=== PATIENT | female | born 1975 | race African-American/Black ===

== ENCOUNTER 2017-02-02 07:24 | Emergency (ER) | payer BC, SELFPAY ==
[2017-02-02] MEDS ORDERED: Ibuprofen 800 MG TAB ONE (08:15)
--- NOTE | 2017-02-02 08:52 | RAD ---
EXAM: RIGHT FOOT 3 VIEWS: HISTORY: Fall. Pain. COMPARISON: None. FINDINGS: Lisfranc alignment is maintained. Joint space is preserved. No fracture or malalignment. Mild dors al soft tissue swelling at the level of the mid foot. IMPRESSION: Mild dorsal soft tissue swelling, without evidence of fracture. POS: [facility]
== END 2017-02-02 08:49 | disposition home or self-care (01) ==
LOC: ERS 07:24
DX: S93.601A Unspecified sprain of right foot, initial encounter (principal); W01.0XXA Fall on same level from slipping, tripping and stumbling without subsequent striking against object, initial encounter

== ENCOUNTER 2017-05-26 16:50 | Emergency (ER) | payer BC, SELFPAY ==
[2017-05-26] MEDS ORDERED: Dexamethasone 4 mg/ml Vial ONE (17:41)
[2017-05-26] MEDS ORDERED: Ketorolac Tromethamine 30 MG/ML VIAL ONE (17:41)
== END 2017-05-26 18:16 | disposition home or self-care (01) ==
LOC: ERS 16:50
DX: S29.012A Strain of muscle and tendon of back wall of thorax, initial encounter (principal); X50.9XXA Other and unspecified overexertion or strenuous movements or postures, initial encounter
CPT/HCPCS: 96372; J1100; J1885

== ENCOUNTER 2018-10-12 18:23 | Emergency (ER) | payer BC, SELFPAY ==
[2018-10-12] MEDS ORDERED: Acetaminophen 500 MG TAB ONE (19:01)
--- NOTE | 2018-10-12 19:52 | RAD ---
XR Tib Fib Lt Leg 2 View History: Pain. Injury. Comparison: None. Findings: Tibia and fibula are intact. No acute fracture or malalignment. Impression: No acute osseous abnormality.
--- NOTE | 2018-10-12 19:53 | RAD ---
XR Wrist 3 Lt View STANDARD History: Pain Comparison: None. Findings: Subtle linear lucency distal pole of the scaphoid. Soft tissues are unremarkable. Remainder of the wrist is unremarkable. Impression: Subtle linear lucency distal pole scaphoid seen only on the lateral radiograph. Recommend correlation with focal tenderness for a nondisplaced fracture.
--- NOTE | 2018-10-12 19:54 | RAD ---
XR Shoulder Lt 3 View STANDARD History: Pain. Fall. Comparison: None. Findings: Visualized ribs appear to be intact. Glenohumeral alignment is normal. Clavicle is intact. Impression: No acute osseous abnormality.
== END 2018-10-12 20:45 | disposition home or self-care (01) ==
LOC: ERS 18:23
DX: S62.015A Nondisplaced fracture of distal pole of navicular [scaphoid] bone of left wrist, initial encounter for closed fracture (principal); S93.402A Sprain of unspecified ligament of left ankle, initial encounter; W18.30XA Fall on same level, unspecified, initial encounter
CPT/HCPCS: 29125

== ENCOUNTER 2019-05-13 21:48 | Emergency (ER) | payer OTHER, SELFPAY ==
--- NOTE | 2019-05-13 23:04 | RAD ---
FRONTAL RADIOGRAPH CHEST: Date: 05-13-2019 Comparison: None History: Cough, congestion, chills, fever. FINDINGS: No pneumothorax or pleural fluid. No focal consolidation or alveolar edema. IMPRESSION: No acute findings. POS: OFF
== END 2019-05-13 23:33 | disposition home or self-care (01) ==
LOC: ERS 21:48
DX: B34.9 Viral infection, unspecified (principal); R07.89 Other chest pain
CPT/HCPCS: 71045; 87804; 93005

== ENCOUNTER 2019-09-22 13:08 | Emergency (ER) | payer OTHER | END 2019-09-22 13:25 | disposition home or self-care (01) | LOC: ERS 13:08 | DX: U07.1 COVID-19 (principal) | CPT/HCPCS: 99283 ==

== ENCOUNTER 2019-09-24 22:09 | Emergency (ER) | payer OTHER ==
[2019-09-24] MEDS ORDERED: Acetaminophen 500 MG TAB ONE (22:24)
== END 2019-09-24 22:56 | disposition left against medical advice (07) ==
LOC: ERS 22:09
DX: Z53.21 Procedure and treatment not carried out due to patient leaving prior to being seen by health care provider (principal)
CPT/HCPCS: 93005

== ENCOUNTER 2020-02-11 17:54 | Emergency (ER) | payer OTHER ==
--- NOTE | 2020-02-11 18:56 | ULT ---
US Venous Doppler Lt Unilat History: Pain and edema Comparison: None. Findings: Real-time grayscale, color and spectral analysis of the left lower extremity venous system was performed. The common femoral, femoral, proximal portions greater saphenous and deep femoral veins as well as the popliteal and posterior tibial veins were interrogated. Normal flow, augmentation and compression. Impression: No deep venous thrombosis.
== END 2020-02-11 22:35 | disposition home or self-care (01) ==
LOC: ERS 17:54
DX: M17.12 Unilateral primary osteoarthritis, left knee (principal)

== ENCOUNTER 2021-10-08 09:36 | Emergency (ER) | payer OTHER ==
[2021-10-08] MEDS ORDERED: Ketorolac Tromethamine 30 MG/ML VIAL ONE (10:36)
[2021-10-08] MEDS ORDERED: Dexamethasone 10 MG/ML VIAL ONE (10:36)
== END 2021-10-08 11:32 | disposition home or self-care (01) ==
LOC: ERS 09:36
DX: S39.012A Strain of muscle, fascia and tendon of lower back, initial encounter (principal); M62.830 Muscle spasm of back; X50.0XXA Overexertion from strenuous movement or load, initial encounter; Y93.F2 Activity, caregiving, lifting; Y92.511 Restaurant or cafe as the place of occurrence of the external cause
CPT/HCPCS: 96372; 99283; J1100; J1885

== ENCOUNTER 2021-10-14 08:58 | Outpatient (CLI) | payer OTHER | END 2021-10-14 08:59 | disposition home or self-care (01) | LOC: RAD-FRANK 08:58 | PROVIDERS: ATTEND Nurse Practitioner Family | DX: M54.50 Low back pain, unspecified (principal); M47.819 Spondylosis without myelopathy or radiculopathy, site unspecified | CPT/HCPCS: 72100 ==